=== PATIENT | male | born 1965 | race American Indian/Alaskan Native ===

== ENCOUNTER 2020-05-03 05:21 | Inpatient (IN) | payer OTHER ==
[2020-05-03] MEDS ORDERED: levETIRAcetam 1000 MG/NS 0.75% 1,000 MG/100 ML BAG IV ONE ×2 (06:35→09:00)
--- NOTE | 2020-05-03 06:41 | Emergency Department Report ---
ED Seizure HPI - General Chief Complaint: Seizure Stated Complaint: SEIZURE Time Seen by Provider: 05/03/20 06:11 Source: patient, EMS Mode of arrival: Stretcher Limitations: No Limitations - History of Present Illness Initial Comments: Chief complaint: Seizure HPI: This is a 54-year-old male with history of hypertension, alcohol dependence who presents with seizure. Patient was transported via EMS. Family member informed paramedics that patient has had 2 seizures within the last month. According to EMS seizure lasted approximately 1 minute. Patient admits to drinking beer daily. He drinks 3-4 large beers. Last beer was yesterday. He currently denies any symptoms. No previous history of seizure. He initiated care with new PCP Dr. Opal Salcedo. Dr. Salcedo prescribe quitting alcohol. Patient has not taken this medication in over a month. Home medications: Naltrexone Metoprolol Amlodipine Folic acid Complaint: seizure -: This morning Witnessed:: Yes Trauma: No Seizure History: none Place: home Possible Precipitating Event: alcohol withdrawal Associated Symptoms: denies other symptoms Treatments Prior to Arrival: other (EMS transport) - Related Data Allergies Allergy/AdvReac Type Severity Reaction Status Date / Time No Known Allergies Allergy Unverified 05/03/20 05:53 ED Review of Systems ROS: Stated complaint: SEIZURE Other details as noted in HPI Comment: All other systems reviewed and negative Constitutional: denies: fever, malaise Respiratory: denies: cough, shortness of breath Cardiovascular: denies: chest pain Gastrointestinal: denies: abdominal pain, nausea, vomiting Neurological: denies: headache, weakness ED Past Medical Hx - Past Medical History Previous Medical History?: Yes Hx Hypertension: Yes Hx Seizures: No Additional medical history: Alcohol dependence - Surgical History Past Surgical History?: No - Social History Smoking Status: Former Smoker Substance Use Type: Alcohol ED Physical Exam - General Limitations: No Limitations General appearance: alert, in no apparent distress - Head Head exam: Present: atraumatic, normocephalic - Eye Eye exam: Present: normal appearance - ENT ENT exam: Present: mucous membranes moist - Neck Neck exam: Present: normal inspection, full ROM - Respiratory Respiratory exam: Present: normal lung sounds bilaterally. Absent: respiratory distress, wheezes, rales, rhonchi - Cardiovascular Cardiovascular Exam: Present: regular rate, normal rhythm, normal heart sounds. Absent: systolic murmur, diastolic murmur, rubs, gallop - GI/Abdominal GI/Abdominal exam: Present: soft, normal bowel sounds. Absent: distended, tenderness, guarding, rebound - Rectal Rectal exam: Present: deferred - Extremities Exam Extremities exam: Present: normal inspection - Neurological Exam Neurological exam: Present: alert, oriented X3 - Expanded Neurological Exam Expanded Patient oriented to: Present: person, place, time Speech: Present: fluid speech Cranial nerves: EOM's Intact: Normal Cerebellar function: Finger to Nose: Normal Sensory exam: Upper Extremity Light Touch: Normal Motor strength exam: RUE: 5, LUE: 5, RLE: 5, LLE: 5 Best Eye Response (Peebles): (4) open spontaneously Best Motor Response (Javi): (6) obeys commands Best Verbal Response (Javi): (5) oriented Javi Total: 15 - Psychiatric Psychiatric exam: Present: normal affect, normal mood - Skin Skin exam: Present: warm, dry, intact, normal color. Absent: rash ED Course Vital Signs 05/03/20 05/03/20 05/03/20 05:32 05:33 05:46 Temperature 97.6 F Pulse Rate 96 H 111 H 96 H Respiratory 11 L 14 11 L Rate Blood Pressure 158/90 158/90 Blood Pressure 158/90 [Right] O2 Sat by Pulse 100 100 100 Oximetry 05/03/20 05/03/20 06:00 06:16 Temperature Pulse Rate 99 H 100 H Respiratory 13 13 Rate Blood Pressure 158/90 164/92 Blood Pressure [Right] O2 Sat by Pulse 98 100 Oximetry ED Medical Decision Making - Lab Data Result diagrams: 05/03/20 06:44 05/03/20 06:44 - Medical Decision Making Alcohol withdrawal seizure: Patient is admitted for further treatment and evaluation. Upon lab review patient has evidence of alcoholic ketoacidosis as well as SOWMYA. I suspect alcoholic liver disease with elevated T bilirubin AST. Critical care attestation.: If time is entered above; I have spent that time in minutes in the direct care of this critically ill patient, excluding procedure time. ED Disposition Clinical Impression: Alcohol withdrawal seizure, Alcoholic ketoacidosis, Alcoholic liver disease, Acute kidney injury Disposition: OP ADMIT IP TO THIS HOSP Is pt being admited?: Yes Does the pt Need Aspirin: No Condition: Fair
[2020-05-03] MEDS ORDERED: LORazepam 2 MG/ML VIAL IV PRN (06:45)
[2020-05-03 07:24] LABS: Basophils % (Auto) 0.6 % (0.0-1.8); Hematocrit 37.8 % (35.5-45.6); Lymphocytes # (Auto) 0.7 K/mm3 (1.2-5.4); Lymphocytes % (Auto) 11.5 % (13.4-35.0); Mean Corpuscular HGB Conc 34 % (32-34); Mean Corpuscular Volume 108 fl (84-94); Monocytes # (Auto) 0.4 K/mm3 (0.0-0.8); Monocytes % (Auto) 6.8 % (0.0-7.3); Platelet Count 250 K/mm3 (140-440); Red Blood Count 3.49 M/mm3 (3.65-5.03); Red Cell Distribution Width 13.4 % (13.2-15.2)
[2020-05-03 07:42] LABS: Albumin 4.7 g/dL (3.9-5); Calcium 10.1 mg/dL (8.4-10.2)
[2020-05-03] MEDS ORDERED: ONDANSETRON 4 MG/2 ML INJ IV ONE (07:48)
[2020-05-03] MEDS ORDERED: SODIUM CHLORIDE 0.9% 1000 ML 1,000 ML IV ONE (07:48)
--- NOTE | 2020-05-03 10:36 | History and Physical Report ---
History of Present Illness Date of examination: 05/03/20 Date of admission: 05/03/20 07:53 Chief complaint: Metabolic encephalopathy/AMS/seizures History of present illness: 54-year-old -[place] male patient with significant history of hypertension chronic alcohol use seizure disorder presented to the emergency room brought by EMS with altered level of consciousness and seizures x2 witnessed by family.Patient gives history of chronic alcohol use drinks about 3- 4 large beers, last drink was yesterday, patient's primary care physician is encouraging him to quit alcohol and prescribed some medications However he was noncompliant and did not take them Complains of mild dizziness and headache Patient denies nausea vomiting or abdominal pain Past History Past Medical History: hypertension, seizures, other (Chronic alcohol use) Past Surgical History: No surgical history Social history: alcohol abuse. denies: smoking, prescription drug abuse, IV drug use Family history: no significant family history Medications and Allergies Allergies Allergy/AdvReac Type Severity Reaction Status Date / Time No Known Allergies Allergy Unverified 05/03/20 05:53 Home Medications Medication Instructions Recorded Confirmed Last Taken Type Amlodipine Besylate [Norvasc] 10 mg PO QDAY 05/03/20 05/03/20 Unknown History Folic Acid 1 mg PO QDAY 05/03/20 05/03/20 Unknown History Metoprolol Xl [Metoprolol 100 mg PO QDAY 05/03/20 05/03/20 Unknown History SUCCINATE ER TAB] Naltrexone HCl 50 mg PO QDAY 05/03/20 05/03/20 Unknown History Active Meds: Active Medications Lorazepam (Lorazepam 2 Mg/Ml Vial) 2 mg IV Q1HR PRN PRN Reason: Kalani 10-03 Last Admin: 05/03/20 09:17 Dose: 2 mg Documented by: Lorazepam (Lorazepam 2 Mg Tab) 2 mg PO Q1HR PRN PRN Reason: Kalani 10-03 Review of Systems Constitutional: weakness, no weight loss, no weight gain, no fever, no chills Ears, nose, mouth and throat: no nasal congestion, no nasal discharge Cardiovascular: no chest pain, no orthopnea, no palpitations Respiratory: no cough, no shortness of breath Gastrointestinal: no abdominal pain, no nausea, no vomiting Genitourinary Male: no dysuria, no hematuria Musculoskeletal: no myalgias, no arthritis Integumentary: no rash, no lesions Neurological: seizures, change in mentation, confusion Psychiatric: no anxiety, no depression Endocrine: no cold intolerance, no heat intolerance Hematologic/Lymphatic: no easy bruising, no easy bleeding Allergic/Immunologic: no urticaria, no allergic rhinitis Exam - Constitutional Vitals: Temp Pulse Resp BP Pulse Ox 98.8 F 90 18 172/90 100 05/03/20 09:20 05/03/20 09:20 05/03/20 09:20 05/03/20 09:20 05/03/20 09:20 General appearance: Present: mild distress, well-nourished - EENT Eyes: Present: PERRL, EOM intact - Neck Neck: Present: supple, normal ROM - Respiratory Respiratory effort: normal Respiratory: bilateral: diminished, rhonchi, negative: rales, wheezing - Cardiovascular Rhythm: regular Heart Sounds: Present: S1 & S2 - Extremities Extremities: no ischemia, No edema - Abdominal General gastrointestinal: Present: soft, non-tender, non-distended, normal bowel sounds - Integumentary Integumentary: Present: clear, warm - Musculoskeletal Musculoskeletal: strength equal bilaterally, generalized weakness, other (Mild tremulousness) - Psychiatric Psychiatric: appropriate mood/affect, cooperative - Neurologic Neurologic: moves all extremities (Tremulousness) Results - Labs CBC & Chem 7: 05/03/20 06:44 05/03/20 06:44 Labs: Abnormal lab results 05/03/20 05/03/20 Range/Units 06:44 06:44 RBC 3.49 L (3.65-5.03) M/mm3 MCV 108 H (84-94) fl MCH 37 H (28-32) pg Lymph % (Auto) 11.5 L (13.4-35.0) % Lymph # (Auto) 0.7 L (1.2-5.4) K/mm3 Seg Neutrophils % 81.1 H (40.0-70.0) % Carbon Dioxide 17 L (22-30) mmol/L Creatinine 2.3 H (0.8-1.3) mg/dL Glucose 147 H (75-100) mg/dL Phosphorus 5.70 H (2.5-4.5) mg/dL Total Bilirubin 2.80 H (0.1-1.2) mg/dL AST 67 H (5-40) units/L Total Protein 8.3 H (6.3-8.2) g/dL Assessment and Plan --Acute metabolic encephalopathy; Secondary to alcohol use Alcohol withdrawal symptoms Treat the underlying cause Neurochecks CT head without contrast negative --Seizures; seizure precaution Keppra 500 mg p.o. twice daily Ativan as needed for seizure activity Neurology consulted EEG, MRI brain without contrast Do not drive for 6 months Or cleared by neurology/PMD Patient will follow outpatient neuro upon discharge --Alcohol withdrawal symptoms; Initiate CIWA protocol, IV fluids Thiamine folic acid Supportive care Fall precautions restraints as needed --Chronic alcohol use; Counseling strongly advised to quit Also advised to seek alcohol rehabilitation Help from [facility] support groups --Hypertension; moderate control Resume home antihypertensives As needed hydralazine --DVT prophylaxis; Lovenox We will closely monitor the patient and adjust the management as needed Plan of care reviewed with the patient and his nurse
[2020-05-03] MEDS ORDERED: ONDANSETRON 4 MG/2 ML INJ IV PRN (10:37)
[2020-05-03] MEDS ORDERED: SODIUM CHLORIDE 0.9% 100 ML IVPB IV SCH (13:00)
--- NOTE | 2020-05-03 14:06 | Cat Scan Report ---
CT HEAD WITHOUT CONTRAST INDICATION / CLINICAL INFORMATION: Altered level of consciousness/seizures. TECHNIQUE: Axial imaging performed from the skull apex through the skull base without the use of cont rast. Sagittal and coronal reformatted images. All CT scans at this location are performed using CT dose reduction for ALARA by means of automated exposure control. COMPARISON: None available. FINDINGS: CEREBRAL PARENCHYMA: No significant abnormality. No acute territorial infarct. HEMORRHAGE: None. EXTRA-AXIAL SPACES: Normal in size and morphology for the patient's age. VENTRICULAR SYSTEM: Normal in size and morphology for the patient's age. MIDLINE SHIFT OR HERNIATION: None. CEREBELLUM / BRAINSTEM: No significant abnormality. CALVARIUM: No significant abnormality. ORBITS: Normal as visualized. PARANASAL SINUSES / MASTOID AIR CELLS: Normal as visualized. SOFT TISSUES of HEAD: No significant abnormality. ADDITIONAL FINDINGS: None. IMPRESSION: No acute intracranial abnormality. Signer Name: Jefe Cade Jr, MD Signed: 05/03/2020 2:01 PM Workstation Name: [id number]
[2020-05-03] MEDS: METOPROLOL SUCCINATE XL 100 MG TAB PO SCH (16:37)
[2020-05-03] MEDS: LORazepam 2 MG TAB PO PRN ×2 (16:37→22:57)
[2020-05-03] MEDS: SODIUM CHLORIDE 0.9% 1000 ML 1,000 ML IV SCH (16:38)
[2020-05-03] MEDS: INSULIN LISPRO 100 UNIT/ML SUB-Q SCH ×2 (16:39→22:58)
--- NOTE | 2020-05-03 17:02 | Consultation ---
History of Present Illness Consult date: 05/03/20 Reason for Consult: Caryl History of present illness: HPI: This is a 54-year-old male with history of hypertension, alcohol dependence who presents with seizure. Patient was transported via EMS. Family member informed paramedics that patient has had 2 seizures within the last month. According to EMS seizure lasted approximately 1 minute. Patient admits to drinking beer daily. He drinks 3-4 large beers. Last beer was yesterday. He currently denies any symptoms. No previous history of seizure. He initiated care with new PCP Dr. Opal Salcedo. Dr. Salcedo prescribe quitting alcohol. Patient has not taken this medication in over a month. The patient reports no seizure in the hospital . There is no headache and no issues with dizziness and vertigo. Past History Past Medical History: hypertension, seizures, other (Chronic alcohol use) Past Surgical History: No surgical history Social history: alcohol abuse. denies: smoking, prescription drug abuse, IV drug use Family history: no significant family history Medications and Allergies Allergies Allergy/AdvReac Type Severity Reaction Status Date / Time No Known Allergies Allergy Unverified 05/03/20 05:53 Home Medications Medication Instructions Recorded Confirmed Last Taken Type Amlodipine Besylate [Norvasc] 10 mg PO QDAY 05/03/20 05/03/20 Unknown History Folic Acid 1 mg PO QDAY 05/03/20 05/03/20 Unknown History Metoprolol Xl [Metoprolol 100 mg PO QDAY 05/03/20 05/03/20 Unknown History SUCCINATE ER TAB] Naltrexone HCl 50 mg PO QDAY 05/03/20 05/03/20 Unknown History Active Meds: Active Medications Amlodipine Besylate (Amlodipine 5 Mg Tab) 10 mg PO QDAY BERNADINE Folic Acid (Folic Acid 1 Mg Tab) 1 mg PO QDAY BERNADINE Sodium Chloride (Nacl 0.9% 1000 Ml) 1,000 mls @ 75 mls/hr IV DIRECT BERNADINE Last Admin: 05/03/20 16:38 Dose: 75 mls/hr Documented by: Insulin Human Lispro (Insulin Lispro 100 Unit/Ml) 0 unit SUB-Q ACHS BERNADINE; Henri col Last Admin: 05/03/20 16:39 Dose: Not Given Documented by: Lorazepam (Lorazepam 2 Mg/Ml Vial) 2 mg IV Q1HR PRN PRN Reason: CIWA-Ar 8-15 Last Admin: 05/03/20 09:17 Dose: 2 mg Documented by: Lorazepam (Lorazepam 2 Mg Tab) 2 mg PO Q1HR PRN PRN Reason: CIWA-Ar 10-03 Last Admin: 05/03/20 16:37 Dose: 2 mg Documented by: Metoprolol Succinate (Metoprolol Succinate Xl 100 Mg Tab) 100 mg PO QDAY [facility] Last Admin: 05/03/20 16:37 Dose: 100 mg Documented by: Ondansetron HCl (Ondansetron 4 Mg/2 Ml Inj) 4 mg IV Q4H PRN PRN Reason: Nausea And Vomiting Thiamine HCl (Thiamine 100 Mg Tab) 100 mg PO QDAY [facility] Physical Examination - Vital Signs Vital Signs: Vital Signs Pulse Resp Pulse Ox 96 H 11 L 100 05/03/20 05:32 05/03/20 05:32 05/03/20 05:32 - Physical Exam Narrative exam: The patient is alert, moves all 4 extremities, Gait is not tested . Results - Laboratory Findings CBC and BMP: 05/03/20 06:44 05/03/20 06:44 Abnormal Lab Findings: Abnormal Labs 05/03/20 05/03/20 05/03/20 06:44 06:44 11:34 RBC 3.49 L MCV 108 H MCH 37 H Lymph % (Auto) 11.5 L Lymph # (Auto) 0.7 L Seg Neutrophils % 81.1 H Carbon Dioxide 17 L Creatinine 2.3 H Glucose 147 H POC Glucose 107 H Phosphorus 5.70 H Total Bilirubin 2.80 H AST 67 H Total Protein 8.3 H Assessment and Plan 1. Seizure ( clinically most likely - no clinical evidence of focal neurological defecit. 2. Discussed Management - ? ETO withdrawal versus Primary Seizure. Plan: 1. Needs MRI Brain no contrast . 2. EEG in Hospital if normal consider out patient Ambulatory EEG. 3. No driving for 6 months . 4. Continue Current Medications . 5. Needs a Neurology Out patient followup to adjsut medications. 6. Continue Keppra 500 mg BID for now . Call back with Questions Dr. Morales
[2020-05-03] MEDS ORDERED: INSULIN LISPRO 100 UNIT/ML SUB-Q SCH (22:00)
[2020-05-03] MEDS: levETIRAcetam 500 MG TAB PO SCH (22:57)
[2020-05-04 06:21] LABS: Calcium 8.6 mg/dL (8.4-10.2)
[2020-05-04] MEDS: levETIRAcetam 500 MG TAB PO SCH ×2 (10:00→21:51)
[2020-05-04] MEDS: INSULIN LISPRO 100 UNIT/ML SUB-Q SCH ×4 (10:14→21:51)
[2020-05-04] MEDS: THIAMINE 100 MG TAB PO SCH (10:49)
[2020-05-04] MEDS: METOPROLOL SUCCINATE XL 100 MG TAB PO SCH (10:50)
[2020-05-04] MEDS: amLODIPine 10 MG TAB PO SCH (10:50)
[2020-05-04] MEDS: FOLIC ACID 1 MG TAB PO SCH (10:50)
--- NOTE | 2020-05-04 11:30 | Progress Note ---
Assessment and Plan Assessment and plan: --Acute metabolic encephalopathy; Secondary to alcohol use Alcohol withdrawal symptoms Treat the underlying cause CT head without contrast negative MRI brain; no acute abnormality, age-related global atrophy EEG; pending --Seizures; seizure precaution Keppra 500 mg p.o. twice daily Ativan as needed for seizure activity Neurology following EEG; pending, MRI brain without contrast/negative Do not drive for 6 months/till cleared by neurology/PMD Patient will follow outpatient neuro upon discharge --Alcohol withdrawal symptoms; Initiate CIWA protocol, IV fluids Thiamine folic acid Supportive care Fall precautions restraints as needed --Chronic alcohol use; Counseling strongly advised to quit Also advised to seek alcohol rehabilitation Help from [facility] support groups --Hypertension; moderate control Resume home antihypertensives As needed hydralazine PT evaluation and management --DVT prophylaxis; Lovenox We will closely monitor the patient and adjust the management as needed Plan of care reviewed with the patient and his nurse Will discharge home in 1 to 2 days if stable History Interval history: I have seen and examined the patient at the bedside Patient's chart and medications reviewed No new episodes of seizures Patient feels better no new complaints Vital signs noted Hospitalist Physical - Constitutional Vitals: Temp Pulse Resp BP Pulse Ox 98.7 F 78 18 149/72 100 05/04/20 07:47 05/04/20 10:50 05/04/20 07:47 05/04/20 10:50 05/04/20 07:47 General appearance: Present: mild distress, well-nourished, other (Mild tremu lousness) - EENT Eyes: Present: PERRL, EOM intact - Neck Neck: Present: supple, normal ROM - Respiratory Respiratory effort: normal Respiratory: bilateral: diminished, negative: rales, rhonchi, wheezing - Cardiovascular Rhythm: regular Heart Sounds: Present: S1 & S2 - Extremities Extremities: no ischemia, No edema - Abdominal General gastrointestinal: soft, non-tender, non-distended, normal bowel sounds - Integumentary Integumentary: Present: clear, warm - Psychiatric Psychiatric: appropriate mood/affect, cooperative - Neurologic Neurologic: moves all extremities Results - Labs CBC & Chem 7: 05/03/20 06:44 05/04/20 05:27 Labs: Laboratory Last Values WBC 5.9 K/mm3 (4.5-11.0) 05/03/20 06:44 RBC 3.49 M/mm3 (3.65-5.03) L 05/03/20 06:44 Hgb 13.0 gm/dl (11.8-15.2) 05/03/20 06:44 Hct 37.8 % (35.5-45.6) 05/03/20 06:44 MCV 108 fl (84-94) H 05/03/20 06:44 MCH 37 pg (28-32) H 05/03/20 06:44 MCHC 34 % (32-34) 05/03/20 06:44 RDW 13.4 % (13.2-15.2) 05/03/20 06:44 Plt Count 250 K/mm3 (140-440) 05/03/20 06:44 Lymph % (Auto) 11.5 % (13.4-35.0) L 05/03/20 06:44 [place] % (Auto) 6.8 % (0.0-7.3) 05/03/20 06:44 Eos % (Auto) 0.0 % (0.0-4.3) 05/03/20 06:44 Baso % (Auto) 0.6 % (0.0-1.8) 05/03/20 06:44 Lymph # (Auto) 0.7 K/mm3 (1.2-5.4) L 05/03/20 06:44 [place] # (Auto) 0.4 K/mm3 (0.0-0.8) 05/03/20 06:44 Eos # (Auto) 0.0 K/mm3 (0.0-0.4) 05/03/20 06:44 Baso # (Auto) 0.0 K/mm3 (0.0-0.1) 05/03/20 06:44 Seg Neutrophils % 81.1 % (40.0-70.0) H 05/03/20 06:44 Seg Neutrophils # 4.8 K/mm3 (1.8-7.7) 05/03/20 06:44 Sodium 139 mmol/L (137-145) 05/04/20 05:27 Potassium 4.2 mmol/L (3.6-5.0) 05/04/20 05:27 Chloride 101.4 mmol/L (98-107) 05/04/20 05:27 Carbon Dioxide 24 mmol/L (22-30) D 05/04/20 05:27 Anion Gap 18 mmol/L 05/04/20 05:27 BUN 21 mg/dL (9-20) H 05/04/20 05:27 Creatinine 1.7 mg/dL (0.8-1.3) H 05/04/20 05:27 Estimated GFR 51 ml/min 05/04/20 05:27 BUN/Creatinine Ratio 12 % 05/04/20 05:27 Glucose 74 mg/dL (75-100) L 05/04/20 05:27 POC Glucose 200 mg/dL (70-105) H 05/03/20 21:08 Calcium 8.6 mg/dL (8.4-10.2) 05/04/20 05:27 Phosphorus 5.70 mg/dL (2.5-4.5) H 05/03/20 06:44 Magnesium 2.00 mg/dL (1.7-2.3) 05/04/20 05:27 Total Bilirubin 2.80 mg/dL (0.1-1.2) H 05/03/20 06:44 AST 67 units/L (5-40) H 05/03/20 06:44 ALT 53 units/L (7-56) 05/03/20 06:44 Alkaline Phosphatase 41 units/L (35-129) 05/03/20 06:44 Total Protein 8.3 g/dL (6.3-8.2) H 05/03/20 06:44 Albumin 4.7 g/dL (3.9-5) 05/03/20 06:44 Albumin/Globulin Ratio 1.3 % 05/03/20 06:44 Active Medications - Current Medications Current Medications: Generic Name Dose Route Start Last Admin Trade Name Freq PRN Reason Stop Dose Admin Amlodipine Besylate 10 mg 05/04/20 10:00 05/04/20 10:50 Amlodipine 10 Mg Tab PO 10 mg QDAY BERNADINE Administration Folic Acid 1 mg 05/04/20 10:00 05/04/20 10:50 Folic Acid 1 Mg Tab PO 1 mg QDAY BERNADINE Administration Sodium Chloride 1,000 mls @ 75 mls/hr 05/03/20 12:45 05/03/20 16:38 Nacl 0.9% 1000 Ml IV 75 mls/hr DIRECT BERNADINE Administration Insulin Human Lispro 0 unit 05/03/20 16:30 05/04/20 10:14 Insulin Lispro 100 Unit/Ml SUB-Q Not Given ACHS BERNADINE Protocol Levetiracetam 500 mg 05/03/20 22:00 05/03/20 22:57 Levetiracetam 500 Mg Tab PO 500 mg BID BERNADINE Administration Lorazepam 2 mg 05/03/20 06:45 05/03/20 09:17 Lorazepam 2 Mg/Ml Vial IV 2 mg Q1HR PRN Administration [facility] 8-15 Lorazepam 2 mg 05/03/20 06:45 05/03/20 22:57 Lorazepam 2 Mg Tab PO 2 mg Q1HR PRN Administration [facility] 8-15 Metoprolol Succinate 100 mg 05/03/20 11:00 05/04/20 10:50 Metoprolol Succinate Xl 100 Mg Tab PO 100 mg QDAY BERNADINE Administration Ondansetron HCl 4 mg 05/03/20 10:37 Ondansetron 4 Mg/2 Ml Inj IV Q4H PRN Nausea And Vomiting Thiamine HCl 100 mg 05/04/20 10:00 05/04/20 10:49 Thiamine 100 Mg Tab PO 100 mg QDAY BERNADINE Administration
--- NOTE | 2020-05-04 11:54 | Magnetic Resonance Report ---
MRI BRAIN WITHOUT CONTRAST INDICATION / CLINICAL INFORMATION: Seizures. TECHNIQUE: Multiplanar, multisequence MR images of the brain were obtained. COMPARISON: Head CT on 05/03/2020 FINDINGS: BRAIN / INTRACRANIAL CONTENTS: No acute ischemia, acute hemorrhage, mass effect, midline shift, or hy drocephalus. No chronic infarct. Mild global brain atrophy slightly greater than expected for the pa tient's age. CRANIOCERVICAL JUNCTION: No significant abnormality. VASCULAR FLOW-VOIDS: No significant abnormality. ORBITS: No significant abnormality of visualized orbits. SINUSES / MASTOIDS: No significant abnormality of visualized sinuses and mastoid air cells. ADDITIONAL FINDINGS: None. IMPRESSION: 1. No acute findings. 2. Mild global brain atrophy which is greater than anticipated given the patient's age. Signer Name: Esdras Basilio MD Signed: 05/04/2020 11:49 AM Workstation Name: [id number]
[2020-05-04] MEDS: SODIUM CHLORIDE 0.9% 1000 ML 1,000 ML IV SCH (11:57)
--- NOTE | 2020-05-04 17:29 | Progress Note ---
Subjective Date of service: 05/04/20 Principal diagnosis: Seizures Interval history: 1. Reviewed MRI Brain - no acute issues and no mass .Awaits EEG . 2. Continue Keppra 750 mg BID 3. Driving Issues Discussed . 4. If stable patient can be followed up Out Patient Neurology Follow up . Dr. Carmen WRAY Objective - Vital Sign Vital Signs - 12hr 05/04/20 05/04/20 05/04/20 07:47 10:00 10:50 Temperature 98.7 F Pulse Rate 64 62 78 Respiratory 18 Rate Blood Pressure 170/98 149/72 O2 Sat by Pulse 100 Oximetry - Laboratory Findings CBC and BMP: 05/03/20 06:44 05/04/20 05:27 Abnormal Lab Findings: Abnormal Labs 05/03/20 05/03/20 05/03/20 06:44 06:44 11:34 RBC 3.49 L MCV 108 H MCH 37 H Lymph % (Auto) 11.5 L Lymph # (Auto) 0.7 L Seg Neutrophils % 81.1 H Carbon Dioxide 17 L BUN Creatinine 2.3 H Glucose 147 H POC Glucose 107 H Phosphorus 5.70 H Total Bilirubin 2.80 H AST 67 H Total Protein 8.3 H 05/03/20 05/03/20 05/04/20 16:39 21:08 05:27 RBC MCV MCH Lymph % (Auto) Lymph # (Auto) Seg Neutrophils % Carbon Dioxide BUN 21 H Creatinine 1.7 H Glucose 74 L POC Glucose 128 H 200 H Phosphorus Total Bilirubin AST Total Protein 05/04/20 05/04/20 12:00 16:37 RBC MCV MCH Lymph % (Auto) Lymph # (Auto) Seg Neutrophils % Carbon Dioxide BUN Creatinine Glucose POC Glucose 150 H 117 H Phosphorus Total Bilirubin AST Total Protein
[2020-05-05 08:40] VITALS: BP 123/79
[2020-05-05] MEDS: INSULIN LISPRO 100 UNIT/ML SUB-Q SCH ×2 (10:15→12:21)
[2020-05-05] MEDS: amLODIPine 10 MG TAB PO SCH (10:17)
[2020-05-05] MEDS: FOLIC ACID 1 MG TAB PO SCH (10:17)
[2020-05-05] MEDS: THIAMINE 100 MG TAB PO SCH (10:17)
[2020-05-05] MEDS: levETIRAcetam 500 MG TAB PO SCH (10:17)
[2020-05-05] MEDS: METOPROLOL SUCCINATE XL 100 MG TAB PO SCH (10:20)
--- NOTE | 2020-05-05 12:23 | Discharge Summary ---
Providers - Providers Date of Admission: 05/04/20 17:48 Date of discharge: 05/05/20 Attending physician: KIM REYNOSO 05/03/20 17:17 Consult to Physician [CONS] Routine Comment: Consulting Provider: JALEEL SALAZAR Physician Instructions: Reason For Exam: Seizures 05/04/20 17:45 Physical Therapy Evaluation and Treat [CONS] Routine Comment: Reason For Exam: Seizures/unsteady gait Primary care physician: TERMINATION CLERK Hospitalization Condition: Fair Disposition: DC-01 TO HOME OR SELFCARE Time spent for discharge: 35 min Core Measure Documentation - Palliative Care Palliative Care/ Comfort Measures: Not Applicable - Core Measures Any of the following diagnoses?: none Exam - Constitutional Vitals: Temp Pulse Resp BP Pulse Ox 98.3 F 83 20 123/79 96 05/05/20 08:18 05/05/20 10:00 05/05/20 08:18 05/05/20 08:18 05/05/20 08:18 Plan Activity: advance as tolerated, no driving until cleared by PCP, fall precautions Diet: regular Additional Instructions: Advised to quit alcohol intake. Advised to seek alcohol rehabilitation. And help from [facility] support group. If you have worsening symptoms contact MD or go to emergency room. Advised to follow private neurologist in 1 week/outpatient EEG. Alcohol withdrawal seizure precautions. Do not drive for 6 months/until cleared by PMD or neurologist Follow up with: EMILEE BARBER MD [Primary Care Provider] - 7 Days JALEEL SALAZAR MD [Staff Physician] - 7 Days Prescriptions: Folic Acid 1 mg PO QDAY #30 levETIRAcetam [Keppra TAB] 750 mg PO BID #60 tablet Metoprolol Xl [Metoprolol SUCCINATE ER TAB] 100 mg PO QDAY #30 Thiamine [Vitamin B-1] 100 mg PO QDAY #30 tablet
== END 2020-05-05 15:23 | disposition home or self-care (01) | DRG 100 ==
LOC: ED 05:21 → 4A 07:53 → OBSVTOIN 05-04 17:48
PROVIDERS: ADMIT Internal Medicine; ATTEND Internal Medicine
DX: G40.89 Other seizures (principal); G93.41 Metabolic encephalopathy; N17.9 Acute kidney failure, unspecified; F10.239 Alcohol dependence with withdrawal, unspecified; E87.2 Acidosis; K70.9 Alcoholic liver disease, unspecified; I10 Essential (primary) hypertension; Z79.899 Other long term (current) drug therapy; Z87.891 Personal history of nicotine dependence
CPT/HCPCS: 36415; 70450; 70551; 80048; 80053; 82962; 83735; 84100; 85025; 95819; 96361; 96374; 96375; G0378; J1815; J1953; J2060; J2405; J7030

== ENCOUNTER 2021-02-04 05:56 | Observation (INO) | payer SELFPAY ==
[2021-02-04] MEDS ORDERED: levETIRAcetam 1000 MG/NS 0.75% 1,000 MG/100 ML BAG IV ONE (06:15)
[2021-02-04] MEDS ORDERED: THIAMINE 100 MG, FOLIC ACID 1 MG, MULTIPLE VITAMIN INJ, ADULT 10 ML in SODIUM CHLORIDE ... IV ONE ×2 (06:16→09:00)
--- NOTE | 2021-02-04 06:20 | Emergency Department Report ---
HPI - General Chief Complaint: Seizure Time Seen by Provider: 02/04/21 06:10 - HPI HPI: 55-year-old -Citizen Of [place] male presents to the emergency department via EMS from home after he had 2 witnessed seizures. First the patient had a witnessed seizure by his and patient was seen falling off of the bed onto the ground. Just as EMS arrived to the emergency department, while still in the ambulance, the patient had another seizure and was given 5 mg of Versed. At the time of my examination he presents postictal. He has a small forehead hematoma and some swelling to the nasal bridge. Patient appears to have a history of alcohol withdrawal seizures and EMS says that they believe that is what this is as well. No family at bedside and I have not yet had an opportunity to talk to the patient's family about the patient's drinking history. He is currently postictal and therefore a poor historian. ED Past Medical Hx - Past Medical History Hx Hypertension: Yes Hx Congestive Heart Failure: No Hx Diabetes: Yes Hx Seizures: No Hx Asthma: Yes Additional medical history: Alcohol dependence - Surgical History Past Surgical History?: No - Social History Smoking Status: Unknown if ever smoked Substance Use Type: None - Medications Home Medications: Home Medications Medication Instructions Recorded Confirmed Last Taken Type Amlodipine Besylate [Norvasc] 10 mg PO QDAY 05/03/20 05/03/20 Unknown History Naltrexone HCl 50 mg PO QDAY 05/03/20 05/03/20 Unknown History Folic Acid 1 mg PO QDAY #30 05/05/20 Unknown Rx Metoprolol Xl [Metoprolol 100 mg PO QDAY #30 05/05/20 Unknown Rx SUCCINATE ER TAB] Thiamine [Vitamin B-1] 100 mg PO QDAY #30 tablet 05/05/20 Unknown Rx levETIRAcetam [Keppra TAB] 750 mg PO BID #60 tablet 05/05/20 Unknown Rx ED Review of Systems ROS: Stated complaint: seizure Other details as noted in HPI Comment: Unobtainable due to pts medical conditions Physical Exam - Physical Exam Vital Signs: Vital Signs 02/04/21 05:59 Temperature 98.4 F Pulse Rate 110 H Respiratory 20 Rate Blood Pressure 160/104 [Left] O2 Sat by Pulse 98 Oximetry Physical Exam: GENERAL: The patient is ill-appearing and unresponsive. HENT: Normocephalic. Nonexpanding middle forehead hematoma with abrasion or very small laceration. Patient has moist mucous membranes. Swelling to the nasal bridge. EYES: Pupils equal reactive to light bilaterally. NECK: Supple. Trachea is midline. CHEST/LUNGS: Clear to auscultation. There is no respiratory distress noted. HEART/CARDIOVASCULAR: Regular. There is no tachycardia. There is no murmur. ABDOMEN: Abdomen is soft, nontender. Patient has normal bowel sounds. There is no abdominal distention. SKIN: Skin is warm and dry. NEURO: Patient is currently postictal and unresponsive. MUSCULOSKELETAL: There is no tenderness or deformity. ED Course Vital Signs 02/04/21 05:59 Temperature 98.4 F Pulse Rate 110 H Respiratory 20 Rate Blood Pressure 160/104 [Left] O2 Sat by Pulse 98 Oximetry ED Medical Decision Making - Lab Data Result diagrams: 02/04/21 07:10 02/04/21 07:10 - Radiology Data Radiology results: report reviewed, image reviewed interpreted by me: Chest x-ray does not show any acute process. There are no pleural effusions, obvious pneumonia and there is no pneumothorax. No widened mediastinum. CT HEAD WITHOUT CONTRAST INDICATION : Trauma. TECHNIQUE: Axial imaging performed from the skull apex through the skull base without the use of contrast. Sagittal and coronal reformatted images. All CT scans at this location are performed using CT dose reduction for Bloomz by means of automated exposure control. COMPARISON: 05/03/2020. FINDINGS: Parenchyma: No acute intracranial hemorrhage or parenchymal abnormality. No chronic infarct or extra-axial fluid collection. Ventricles: Ventricles are normal in size and appear symmetric. Bones: No acute osseous abnormality. Sinuses: Sinuses and mastoid air cells are clear. Soft tissues: Mild frontal soft tissue swelling is evident. IMPRESSION: No acute intracranial abnormality. Mild frontal soft tissue swelling. CT CERVICAL SPINE WITHOUT CONTRAST INDICATION: Trauma. TECHNIQUE: Axial imaging performed through the cervical spine without the use of contrast. Sag ittal and coronal reconstructed images were also reviewed. All CT scans at this location are performed using CT dose reduction for ALARA by means of automated exposure control. COMPARISON: None FINDINGS: Alignment: Spinal alignment is normal. Bones: There is no acute osseous abnormality. Moderate to severe discogenic DJD is identified at C4-5, C5-6 and C6-7. C6-C7 appears to be the most affected level. Soft tissues: No acute or significant incidental soft tissue abnormality. IMPRESSION: No acute injury to the cervical spine is appreciated. Moderate cervical spondylosis as described. CT FACIAL BONES WITHOUT CONTRAST INDICATION : Trauma. TECHNIQUE: Axial imaging performed through the face with reconstructed images also reviewed. Sagittal and coronal reformatted images. All CT scans at this location are performed using CT dose reduction for ALARA by means of automated exposure control. COMPARISON: None FINDINGS: There is mild frontal soft tissue swelling with associated focal laceration. No foreign body is appreciated. The facial bones are intact. Sinuses normal cavities are unremarkable. The skull base is intact. Poor dentition is noted. IMPRESSION: Frontal soft tissue swelling. No acute facial bone injury is appreciated. - Medical Decision Making This patient presents to the emergency department after having 2 witnessed seizures prior to presentation. He has a forehead hematoma and a skin avulsion to the nasal bridge. Patient presented postictal and mostly unresponsive. He was given a loading dose of Keppra. CT scan of the head does not show any hemorrhage, skull fracture, large vessel occlusion, or any other acute process. CT of the facial bones does not show any fracture, dislocation, or any acute process. CT of the cervical spine without contrast does not show any fracture, subluxation, or any acute process. Labs shows hyperglycemia with blood sugar of about 300. Patient does have an elevated anion gap but this is more likely secondary to alcoholic ketoacidosis than diabetic ketoacidosis. He has been given some IV fluid resuscitation. Patient has some chronic kidney disease. Urinalysis shows a urinary tract in fection. The patient has been given a dose of Rocephin. Patient has progressively gotten more awake and alert, but still displays some confusion. He is AAO x2 to person and place but not time. Patient will be admitted to the hospital for further evaluation and treatment was accepted for admission by the hospitalist, Dr. Peña. Critical Care Time: No Critical care attestation.: If time is entered above; I have spent that time in minutes in the direct care of this critically ill patient, excluding procedure time. ED Disposition Clinical Impression: Recurrent seizures Altered mental status Qualifiers: Altered mental status type: unspecified Qualified Code(s): R41.82 - Altered mental status, unspecified Hypertension Qualifiers: Hypertension type: primary hypertension Qualified Code(s): I10 - Essential (primary) hypertension Alcohol withdrawal seizure Qualifiers: Complication of substance-induced condition: with unspecified complication Qualified Code(s): F10.239 - Alcohol dependence with withdrawal, unspecified; R56.9 - Unspecified convulsions Disposition: 09 ADMITTED INPATIENT Is pt being admited?: Yes Condition: Fair Time of Disposition: 12:11
--- NOTE | 2021-02-04 06:56 | XRay Report ---
XR chest 1V ap INDICATION / CLINICAL INFORMATION: Trauma. COMPARISON: None available. FINDINGS: Shallow inspiration with streaky bibasilar pulmonary opacities likely reflect volume loss. There is no focal airspace consolidation. No sizable pleural effusion. No pneumothorax. IMPRESSION: Low lung volumes without acute findings. Signer Name: Beto Morillo MD Signed: 02/04/2021 6:52 AM Workstation Name: [id number]
--- NOTE | 2021-02-04 07:55 | Cat Scan Report ---
CT HEAD WITHOUT CONTRAST INDICATION : Trauma. TECHNIQUE: Axial imaging performed from the skull apex through the skull base without the use of con trast. Sagittal and coronal reformatted images. All CT scans at this location are performed using C T dose reduction for ALARA by means of automated exposure control. COMPARISON: 05/03/2020. FINDINGS: Parenchyma: No acute intracranial hemorrhage or parenchymal abnormality. No chronic infarct or extra -axial fluid collection. Ventricles: Ventricles are normal in size and appear symmetric. Bones: No acute osseous abnormality. Sinuses: Sinuses and mastoid air cells are clear. Soft tissues: Mild frontal soft tissue swelling is evident. IMPRESSION: No acute intracranial abnormality. Mild frontal soft tissue swelling. CT FACIAL BONES WITHOUT CONTRAST INDICATION : Trauma. TECHNIQUE: Axial imaging performed through the face with reconstructed images also reviewed. Sagitta l and coronal reformatted images. All CT scans at this location are performed using CT dose reduction for ALARA by means of automated exposure control. COMPARISON: None FINDINGS: There is mild frontal soft tissue swelling with associated focal laceration. No foreign [place] dy is appreciated. The facial bones are intact. Sinuses normal cavities are unremarkable. The skull b ase is intact. Poor dentition is noted. IMPRESSION: Frontal soft tissue swelling. No acute facial bone injury is appreciated. CT CERVICAL SPINE WITHOUT CONTRAST INDICATION: Trauma. TECHNIQUE: Axial imaging performed through the cervical spine without the use of contrast. Sagittal and coronal reconstructed images were also reviewed. All CT scans at this location are performed us ing CT dose reduction for ALARA by means of automated exposure control. COMPARISON: None FINDINGS: Alignment: Spinal alignment is normal. Bones: There is no acute osseous abnormality. Moderate to severe discogenic DJD is identified at C4 -5, C5-6 and C6-7. C6-C7 appears to be the most affected level. Soft tissues: No acute or significant incidental soft tissue abnormality. IMPRESSION: No acute injury to the cervical spine is appreciated. Moderate cervical spondylosis as d escribed. Signer Name: Jefe Cade Jr, MD Signed: 02/04/2021 7:50 AM Workstation Name: [id number]
[2021-02-04 08:23] LABS: Basophils % (Auto) 0.5 % (0.0-1.8); Eosinophils % (Auto) 0.4 % (0.0-4.3); Hematocrit 43.4 % (35.5-45.6); Lymphocytes # (Auto) 1.6 K/mm3 (1.2-5.4); Lymphocytes % (Auto) 14.5 % (13.4-35.0); Mean Corpuscular HGB Conc 32 % (32-34); Mean Corpuscular Volume 102 fl (84-94); Monocytes # (Auto) 0.3 K/mm3 (0.0-0.8); Monocytes % (Auto) 2.5 % (0.0-7.3); Platelet Count 513 K/mm3 (140-440); Red Blood Count 4.24 M/mm3 (3.65-5.03); Red Cell Distribution Width 13.9 % (13.2-15.2)
[2021-02-04 08:24] LABS: Basophils # (Auto) 0.1 K/mm3 (0.0-0.1)
[2021-02-04 09:12] LABS: Albumin 4.4 g/dL (3.9-5); Calcium 9.6 mg/dL (8.4-10.2)
[2021-02-04] MEDS ORDERED: LORazepam 2 MG/ML VIAL IV PRN ×2 (12:12)
--- NOTE | 2021-02-04 14:30 | History and Physical Report ---
History of Present Illness Date of examination: 02/04/21 Date of admission: 02/04/21 12:11 History of present illness: 55-year-old -[place] male presents to the emergency department via EMS from home after he had 2 witnessed seizures. First the patient had a witnessed seizure by his and patient was seen falling off of the bed onto the ground. Just as EMS arrived to the emergency department, while still in the ambulance, the patient had another seizure and was given 5 mg of Versed. At the time of my examination he presents postictal. He has a small forehead hematoma and some swelling to the nasal bridge. Patient appears to have a history of alcohol withdrawal seizures and EMS says that they believe that is what this is as well. No family at bedside and I have not yet had an opportunity to talk to the patient's family about the patient's drinking history. He is currently postictal and therefore a poor historian. - Past Medical History Hx Hypertension: Yes Hx Diabetes: Yes Hx Asthma: Yes Additional medical history: Alcohol dependence - Surgical History Past Surgical History?: No - Social History Smoking Status: Unknown if ever smoked Substance Use Type: None - Medications Home Medications: Home Medications Medication Instructions Recorded Confirmed Last Taken Type Amlodipine Besylate [Norvasc] 10 mg PO QDAY 05/03/20 05/03/20 Unknown History Naltrexone HCl 50 mg PO QDAY 05/03/20 05/03/20 Unknown History Folic Acid 1 mg PO QDAY #30 05/05/20 Unknown Rx Metoprolol Xl [Metoprolol 100 mg PO QDAY #30 05/05/20 Unknown Rx SUCCINATE ER TAB] Thiamine [Vitamin B-1] 100 mg PO QDAY #30 tablet 05/05/20 Unknown Rx levETIRAcetam [Keppra TAB] 750 mg PO BID #60 tablet 05/05/20 Unknown Rx Review of Systems ROS: Stated complaint: seizure Other details as noted in HPI Comment: Unobtainable due to pts medical conditions Medications and Allergies Allergies Allergy/AdvReac Type Severity Reaction Status Date / Time No Known Allergies Allergy Verified 02/04/21 06:00 Home Medications Medication Instructions Recorded Confirmed Last Taken Type Amlodipine Besylate [Norvasc] 10 mg PO QDAY 05/03/20 05/03/20 Unknown History Naltrexone HCl 50 mg PO QDAY 05/03/20 05/03/20 Unknown History Folic Acid 1 mg PO QDAY #30 05/05/20 Unknown Rx Metoprolol Xl [Metoprolol 100 mg PO QDAY #30 05/05/20 Unknown Rx SUCCINATE ER TAB] Thiamine [Vitamin B-1] 100 mg PO QDAY #30 tablet 05/05/20 Unknown Rx levETIRAcetam [Keppra TAB] 750 mg PO BID #60 tablet 05/05/20 Unknown Rx Active Meds: Active Medications Lorazepam (Lorazepam 2 Mg/Ml Vial) 2 mg IV Q1HR PRN PRN Reason: CIWA-Ar 8-15 Lorazepam (Lorazepam 2 Mg/Ml Vial) 4 mg IV Q1HR PRN PRN Reason: CIWA-Ar 16-25 Exam - Constitutional Vitals: Temp Pulse Resp BP Pulse Ox 98.4 F 88 18 177/110 100 02/04/21 05:59 02/04/21 12:15 02/04/21 12:15 02/04/21 12:15 02/04/21 12:15 Results - Labs CBC & Chem 7: 02/04/21 07:10 02/04/21 07:10 Labs: Laboratory Last Values WBC 11.0 K/mm3 (4.5-11.0) 02/04/21 07:10 RBC 4.24 M/mm3 (3.65-5.03) 02/04/21 07:10 Hgb 14.0 gm/dl (11.8-15.2) 02/04/21 07:10 Hct 43.4 % (35.5-45.6) 02/04/21 07:10 MCV 102 fl (84-94) H 02/04/21 07:10 MCH 33 pg (28-32) H 02/04/21 07:10 MCHC 32 % (32-34) 02/04/21 07:10 RDW 13.9 % (13.2-15.2) 02/04/21 07:10 Plt Count 513 K/mm3 (140-440) H 02/04/21 07:10 Lymph % (Auto) 14.5 % (13.4-35.0) 02/04/21 07:10 [place] % (Auto) 2.5 % (0.0-7.3) 02/04/21 07:10 Eos % (Auto) 0.4 % (0.0-4.3) 02/04/21 07:10 Baso % (Auto) 0.5 % (0.0-1.8) 02/04/21 07:10 Lymph # (Auto) 1.6 K/mm3 (1.2-5.4) 02/04/21 07:10 [place] # (Auto) 0.3 K/mm3 (0.0-0.8) 02/04/21 07:10 Eos # (Auto) 0.0 K/mm3 (0.0-0.4) 02/04/21 07:10 Baso # (Auto) 0.1 K/mm3 (0.0-0.1) 02/04/21 07:10 Seg Neutrophils % 82.1 % (40.0-70.0) H 02/04/21 07:10 Seg Neutrophils # 9.1 K/mm3 (1.8-7.7) H 02/04/21 07:10 Sodium 139 mmol/L (137-145) 02/04/21 07:10 Potassium 4.6 mmol/L (3.6-5.0) 02/04/21 07:10 Chloride 98.0 mmol/L (98-107) 02/04/21 07:10 Carbon Dioxide 10 mmol/L (22-30) L 02/04/21 07:10 Anion Gap 36 mmol/L 02/04/21 07:10 BUN 20 mg/dL (9-20) 02/04/21 07:10 Creatinine 2.1 mg/dL (0.8-1.3) H 02/04/21 07:10 Estimated GFR 40 ml/min 02/04/21 07:10 BUN/Creatinine Ratio 10 % 02/04/21 07:10 Glucose 299 mg/dL (75-100) H 02/04/21 07:10 Calcium 9.6 mg/dL (8.4-10.2) 02/04/21 07:10 Total Bilirubin 0.90 mg/dL (0.1-1.2) 02/04/21 07:10 AST 26 units/L (5-40) 02/04/21 07:10 ALT 13 units/L (7-56) 02/04/21 07:10 Alkaline Phosphatase 54 units/L (35-129) 02/04/21 07:10 Total Creatine Kinase 174 units/L (55-170) H 02/04/21 07:10 Total Protein 8.7 g/dL (6.3-8.2) H 02/04/21 07:10 Albumin 4.4 g/dL (3.9-5) 02/04/21 07:10 Albumin/Globulin Ratio 1.0 % 02/04/21 07:10 Plasma/Serum Alcohol < 0.01 % (0-0.07) 02/04/21 07:10
[2021-02-04 14:47] LABS: Bilirubin,Urine NEG (Negative); Blood,Urine MOD (Negative); Color,Urine Yellow (Yellow); Mucus,Urine FEW /HPF; Urobilinogen,Urine < 2.0 mg/dL (<2.0)
[2021-02-04 14:51] LABS: Amphetamine Screen,Urine Negative; Cannabinoid Screen,Urine Negative; Cocaine Screen,Urine Negative; Methadone Screen,Urine Negative; Opiate Screen,Urine Negative
[2021-02-04] MEDS ORDERED: cefTRIAXone/NS 1 GM/50 ML 1 GM/50 ML BAG IV ONE (14:52)
[2021-02-04 15:04] LABS: Benzodiazepines Screen,Urine Positive
[2021-02-04 15:09] VITALS: BP 160/90
--- NOTE | 2021-02-05 12:48 | Electrocardiograph Report ---
[facility] Test Date: 2021-02-04 Test Time: 09:56:33 Pat Name: WENDY AVILA Department: Room: [place] [address] Gender: M [employer] Systems Analyst: MARIO : 1965 Requested By: EDUARDO VU Order Number: [id number] Reading MD: Adrian Mix Measurements Intervals [place] Rate: 96 P: 60 NE: 157 QRS: 2 QRSD: 90 T: 41 QT: 368 QTc: 466 Interpretive Statements Sinus rhythm No previous ECG available for comparison Electronically Signed On 02-05-2021 12:47:25 EST by Adrian Mix
== END 2021-02-04 15:09 | disposition left against medical advice (07) ==
LOC: ED 05:56 → 4A 12:11
PROVIDERS: ADMIT Internal Medicine; ATTEND Internal Medicine
DX: R56.9 Unspecified convulsions (principal); I10 Essential (primary) hypertension; E11.9 Type 2 diabetes mellitus without complications; J45.909 Unspecified asthma, uncomplicated; F10.239 Alcohol dependence with withdrawal, unspecified; R41.82 Altered mental status, unspecified; Z79.899 Other long term (current) drug therapy; Z98.890 Other specified postprocedural states
CPT/HCPCS: 36415; 70450; 70486; 71045; 72125; 80053; 80307; 81001; 82550; 85025; 87076; 87086; 87186; 93005; 96365; 96366; 96367; 99285; G0378; J1953; J3411; J3490; J7030; 80320; Q0162; G0480

== ENCOUNTER 2021-03-02 09:12 | Inpatient (IN) | payer SELFPAY ==
[2021-03-02] MEDS ORDERED: SODIUM CHLORIDE 0.9% 1000 ML 1,000 ML IV ONE (09:18)
[2021-03-02] MEDS ORDERED: levETIRAcetam 1000 MG/NS 0.75% 1,000 MG/100 ML BAG IV ONE (09:19)
--- NOTE | 2021-03-02 09:19 | Emergency Department Report ---
ED Seizure HPI - General Stated Complaint: SEIZURE Time Seen by Provider: 03/02/21 09:18 - History of Present Illness Initial Comments: Patient was brought in by EMS because of seizures. He has had 2 seizures. They have administered Ativan 2 mg x 2 without symptomatic change. He never woke up between seizures. He started seizing upon arrival. The IV had blown up. He then stopped promptly. EMS reports that they were called for seizure and altered mental status. Apparently he has a history of hypertension and seizures. According to EMS, he is noncompliant with medication. History is only obtainable from EMS as the patient is altered. There was no reported history of trauma. - Related Data Home Medications Medication Instructions Recorded Confirmed Last Taken Amlodipine Besylate [Norvasc] 10 mg PO QDAY 05/03/20 05/03/20 Unknown Naltrexone HCl 50 mg PO QDAY 05/03/20 05/03/20 Unknown Previous Rx's Medication Instructions Recorded Last Taken Type Folic Acid 1 mg PO QDAY #30 05/05/20 Unknown Rx Metoprolol Xl [Metoprolol 100 mg PO QDAY #30 05/05/20 Unknown Rx SUCCINATE ER TAB] Thiamine [Vitamin B-1] 100 mg PO QDAY #30 tablet 05/05/20 Unknown Rx levETIRAcetam [Keppra TAB] 750 mg PO BID #60 tablet 05/05/20 Unknown Rx Allergies Allergy/AdvReac Type Severity Reaction Status Date / Time No Known Allergies Allergy Verified 03/02/21 10:26 ED Review of Systems ROS: Stated complaint: SEIZURE Other details as noted in HPI Comment: Unobtainable due to pts medical conditions (Cannot be obtained for the patient secondary to altered mental status) ED Past Medical Hx - Past Medical History Hx Hypertension: Yes Hx Congestive Heart Failure: No Hx Diabetes: Yes Hx Seizures: No Hx Asthma: Yes Additional medical history: Alcohol dependence. Cannot be obtained for the patient secondary to altered mental status - Surgical History Additional Surgical History: Cannot be obtained for the patient secondary to altered mental status - Social History Smoking Status: Unknown if ever smoked Substance Use Type: None Other Social History: Cannot be obtained for the patient secondary to altered mental status - Medications Home Medications: Home Medications Medication Instructions Recorded Confirmed Last Taken Type Amlodipine Besylate [Norvasc] 10 mg PO QDAY 05/03/20 05/03/20 Unknown History Naltrexone HCl 50 mg PO QDAY 05/03/20 05/03/20 Unknown History Folic Acid 1 mg PO QDAY #30 05/05/20 Unknown Rx Metoprolol Xl [Metoprolol 100 mg PO QDAY #30 05/05/20 Unknown Rx SUCCINATE ER TAB] Thiamine [Vitamin B-1] 100 mg PO QDAY #30 tablet 05/05/20 Unknown Rx levETIRAcetam [Keppra TAB] 750 mg PO BID #60 tablet 05/05/20 Unknown Rx ED Physical Exam - General Limitations: Altered Mental Status, Other (Pulse ox per EMS was normal) General appearance: postictal, other (Stuporous and unresponsive) - Head Head exam: Present: atraumatic, normocephalic - Eye Eye exam: Present: normal appearance, PERRL. Absent: scleral icterus - ENT ENT exam: Present: normal external ear exam - Neck Neck exam: Present: normal inspection, other (Trachea midline) - Respiratory Respiratory exam: Present: normal lung sounds bilaterally - Cardiovascular Cardiovascular Exam: Present: normal rhythm, tachycardia - GI/Abdominal GI/Abdominal exam: Present: other (Flat) - Extremities Exam Extremities exam: Absent: pedal edema - Back Exam Back exam: Present: normal inspection - Neurological Exam Neurological exam: Present: other (Stuporous) - Psychiatric Psychiatric exam: Present: other (Unresponsive) - Skin Skin exam: Present: warm, dry ED Course - Reevaluation(s) Reevaluation #1: 03/02/21 09:15 EMS was met in the hallway. Versed was to be given, but the patient immediately stopped seizing. We will order labs and dose with Keppra. 03/02/21 09:22 Old records noted. Reevaluation #2: 03/02/21 11:28 Labs are noted. We will proceed with admission. DKA protocol has been instituted. ED Medical Decision Making - Lab Data Result diagrams: 03/02/21 09:54 03/02/21 09:54 Rhythm strip: Sinus tachycardia without ectopy. Monitor observe 10 seconds. - Medical Decision Making Patient presents with recurrent seizures. He is known to be noncompliant. Metabolically, he is also in DKA. Patient will be started on an insulin drip. He has been hydrated. We will continue to treat seizures as needed. We will undergo ongoing education as the patient becomes more awake and conversant. He will go to the ICU on an insulin drip. Critical Care Time: Yes (55 minutes exclusive of all procedures) Critical care attestation.: If time is entered above; I have spent that time in minutes in the direct care of this critically ill patient, excluding procedure time. ED Disposition Clinical Impression: Recurrent seizures, Non-compliant behavior, SOWMYA (acute kidney injury) DKA (diabetic ketoacidosis) Qualifiers: Diabetes mellitus type: type 1 Diabetes mellitus complication detail: with coma Qualified Code(s): E10.11 - Type 1 diabetes mellitus with ketoacidosis with coma Disposition: 09 ADMITTED INPATIENT Is pt being admited?: Yes Condition: Stable Instructions: Diabetic Ketoacidosis (ED)
[2021-03-02] MEDS ORDERED: INSULIN REGULAR, HUMAN 100 UNITS/1 ML IV ONE (09:48)
[2021-03-02 10:36] LABS: Basophils # (Auto) 0.1 K/mm3 (0.0-0.1); Basophils % (Auto) 0.4 % (0.0-1.8); Eosinophils # (Auto) 0.1 K/mm3 (0.0-0.4); Eosinophils % (Auto) 0.6 % (0.0-4.3); Hematocrit 39.2 % (35.5-45.6); Hemoglobin 12.6 gm/dl (11.8-15.2); Lymphocytes # (Auto) 1.8 K/mm3 (1.2-5.4); Mean Corpuscular HGB Conc 32 % (32-34); Mean Corpuscular Volume 102 fl (84-94); Monocytes # (Auto) 0.8 K/mm3 (0.0-0.8); Monocytes % (Auto) 5.3 % (0.0-7.3); Platelet Count 483 K/mm3 (140-440); Red Blood Count 3.84 M/mm3 (3.65-5.03); Red Cell Distribution Width 12.6 % (13.2-15.2)
[2021-03-02 10:55] LABS: Calcium 8.9 mg/dL (8.4-10.2)
[2021-03-02] MEDS ORDERED: DEXTROSE 50% IN WATER (25GM) 50 ML SYRINGE IV PRN (10:59)
[2021-03-02] MEDS ORDERED: HALOPERIDOL LACTATE 5 MG/1 ML INJ IV ONE (11:28)
[2021-03-02] MEDS ORDERED: INSULIN REGULAR, HUMAN 100 UNITS in SODIUM CHLORIDE 0.9% 99 ML IV SCH (11:30)
[2021-03-02 12:26] LABS: Calcium 9.3 mg/dL (8.4-10.2)
--- NOTE | 2021-03-02 12:54 | History and Physical Report ---
History of Present Illness Chief complaint: He had a seizure History of present illness: 55 YO Male with HTN, DM, Mild Intermittent Asthma, ETOH Dependence presents to ED for evaluation. Patient is confused, lethargic with diminished condition at time of evaluation and is unable to provide history. Patient here for private EMS staff, ED staff, as well as patient's was made available by telephone for interview. As per the patient had a witnessed seizure today while lying on his bed and subsequently fell off the bed and landed on the floor. EMS was notified and upon arrival the patient was found to be in distress and subsequently transported to [facility] for further care and evaluation of the aforementioned symptoms. The patient was seen and evaluated in the emergency department. All lab and imaging studies reviewed. Patient found to have DKA, acute kidney injury, seizure disorder, sepsis suspected secondary to coronavirus infection. Patient admitted to ICU and initiated on DKA protocol, sepsis protocol, as well as coronavirus protocol. Patient also found to have clinical symptoms consistent with alcohol withdrawal. Patient initiated on CIWA protocol. No reports of chest pain, palpitation or productive cough, skin examination or contents, trauma. Prior admission on 01/30/2021 reviewed. All medication listed at time of admission has been reconciled. Advanced care planning conducted in ED. Patient has diminished cognition but has a positive gag reflex and is able to protect his airway without difficulty at time of evaluation. Past History Past Medical History: diabetes, hypertension, other (See HPI) Past Surgical History: No surgical history, Other (Reviewed) Social history: , lives with family Family history: diabetes, hypertension Medications and Allergies Allergies Allergy/AdvReac Type Severity Reaction Status Date / Time No Known Allergies Allergy Verified 03/02/21 10:26 Home Medications Medication Instructions Recorded Confirmed Last Taken Type Amlodipine Besylate [Norvasc] 10 mg PO QDAY 05/03/20 05/03/20 Unknown History Naltrexone HCl 50 mg PO QDAY 05/03/20 05/03/20 Unknown History Folic Acid 1 mg PO QDAY #30 05/05/20 Unknown Rx Metoprolol Xl [Metoprolol 100 mg PO QDAY #30 05/05/20 Unknown Rx SUCCINATE ER TAB] Thiamine [Vitamin B-1] 100 mg PO QDAY #30 tablet 05/05/20 Unknown Rx levETIRAcetam [Keppra TAB] 750 mg PO BID #60 tablet 05/05/20 Unknown Rx Active Meds: Active Medications Dextrose (Dextrose 50% In Water (25gm) 50 Ml Syringe) 0 ml IV Q30MIN PRN; Protocol PRN Reason: Hypoglycemia Insulin Human Regular 100 (units/ Sodium Chloride) 100 mls @ 1 mls/hr IV TITR BERNADINE; Protocol Last Admin: 03/02/21 12:04 Dose: 8 units/hr, 8 mls/hr Review of Systems ROS unobtainable: due to mental status Exam - Constitutional General appearance: Present: severe distress - EENT Eyes: Present: PERRL ENT: hearing intact, clear oral mucosa - Neck Neck: Present: supple, normal ROM - Respiratory Respiratory effort: normal Respiratory: bilateral: diminished - Cardiovascular Rhythm: other (Tachycardia) Heart Sounds: Present: S1 & S2. Absent: rub, click - Extremities Extremities: pulses symmetrical, No edema Peripheral Pulses: abnormal (Capillary refill greater than 3.5 seconds) - Abdominal General gastrointestinal: Present: soft, non-tender, non-distended, normal bowel sounds Male genitourinary: Present: normal - Integumentary Integumentary: Present: warm, dry, clammy, decreased turgor - Musculoskeletal Musculoskeletal: generalized weakness - Psychiatric Psychiatric: no appropriate mood/affect, no intact judgment & insight, no memory intact, agitated - Neurologic Neurologic: CNII-XII intact, no focal deficits, moves all extremities, no gait normal Results - Labs CBC & Chem 7: 03/02/21 09:54 03/02/21 11:48 Labs: Abnormal lab results 03/02/21 03/02/21 03/02/21 Range/Units 09:31 09:54 09:54 WBC 16.1 H (4.5-11.0) K/mm3 MCV 102 H (84-94) fl MCH 33 H (28-32) pg RDW 12.6 L (13.2-15.2) % Plt Count 483 H (140-440) K/mm3 Lymph % (Auto) 11.0 L (13.4-35.0) % Seg Neutrophils % 82.7 H (40.0-70.0) % Seg Neutrophils # 13.3 H (1.8-7.7) K/mm3 VBG pH (7.320-7.420) Sodium 130 L (137-145) mmol/L Chloride 92.0 L (98-107) mmol/L Carbon Dioxide 13 L (22-30) mmol/L BUN 32 H (9-20) mg/dL Creatinine 2.6 H (0.8-1.3) mg/dL Glucose 767 H* (75-100) mg/dL POC Glucose > 600 H (70-105) mg/dL 03/02/21 03/02/21 Range/Units 11:48 11:48 WBC (4.5-11.0) K/mm3 MCV (84-94) fl MCH (28-32) pg RDW (13.2-15.2) % Plt Count (140-440) K/mm3 Lymph % (Auto) (13.4-35.0) % Seg Neutrophils % (40.0-70.0) % Seg Neutrophils # (1.8-7.7) K/mm3 VBG pH 7.175 L* (7.320-7.420) Sodium 135 L (137-145) mmol/L Chloride 96.5 L (98-107) mmol/L Carbon Dioxide 19 L (22-30) mmol/L BUN 34 H (9-20) mg/dL Creatinine 2.6 H (0.8-1.3) mg/dL Glucose 602 H* (75-100) mg/dL POC Glucose (70-105) mg/dL Assessment and Plan - Patient Problems (1) Sepsis Current Visit: Yes Status: Acute Plan to address problem: Sepsis protocol: CBC, CMP, IV antibiotic therapy, IV fluid resuscitation therapy, serial lactic acid level, blood culture, monitor fluid balance, maintai n mean arterial pressure greater than equal 65. The high probability of a clinically significant, sudden or life threatening deterioration of the [neuro, endocrine, infectious disease,] system(s) required my full and direct attention, intervention and personal management. The aggregate critical care time was [60] minutes. This time is in addition to time spent performing reported procedures but includes the following: [x] Data Review and interpretation [x] Patient assessment and monitoring of vital signs [x] Documentation [x] Medication orders and management (2) Toxic metabolic encephalopathy Current Visit: Yes Status: Acute Plan to address problem: IV fluid resuscitation therapy, treat sepsis, (3) Suspected 2019 novel coronavirus infection Current Visit: Yes Status: Acute Plan to address problem: Current respiratory call: Vitamin C therapy, vitamin D therapy, zinc therapy, IV antibiotic therapy, IV steroid therapy, supplemental oxygen, pulse oximetry. (4) DKA (diabetic ketoacidosis) Current Visit: Yes Status: Acute Qualifiers: Diabetes mellitus type: type 1 Diabetes mellitus complication detail: with coma Qualified Code(s): E10.11 - Type 1 diabetes mellitus with ketoacidosis with coma Plan to address problem: DKA protocol: IV fluid resuscitation therapy, insulin drip, serial BMP, monitor anion gap, monitor fluid balance, (5) Alcohol withdrawal seizure Current Visit: No Status: Acute Qualifiers: Complication of substance-induced condition: with unspecified complication Qualified Code(s): F10.239 - Alcohol dependence with withdrawal, unspecified; R56.9 - Unspecified convulsions Plan to address problem: Thiamine, folic acid, multivitamin, CIWA protocol (6) DVT prophylaxis Current Visit: Yes Status: Acute Plan to address problem: SCD to bilateral lower extremities while in bed, prophylactic anticoagulation (7) Advance care planning Current Visit: Yes Status: Acute Plan to address problem: Disease education data, care plan discussed, diagnosis discussed, prognosis discussed, patient is full code. Patient acknowledges understanding and agreement with care plan, +30 minutes.
--- NOTE | 2021-03-02 13:29 | XRay Report ---
CHEST 1 VIEW 03/02/2021 1:02 PM INDICATION / CLINICAL INFORMATION: Cough. COMPARISON: 02/04/21. FINDINGS: SUPPORT DEVICES: None. HEART / MEDIASTINUM: The heart size and pulmonary vasculature are normal. LUNGS / PLEURA: There are is a calcified right hilar lymph node. The lungs are otherwise clear. No pl eural abnormality. No pneumothorax. ADDITIONAL FINDINGS: No significant additional findings. IMPRESSION: No acute abnormality or significant change. Signer Name: Harris Bray MD Signed: 03/02/2021 1:24 PM Workstation Name: [id number]
[2021-03-02 13:38] LABS: Bilirubin,Urine NEG (Negative); Blood,Urine NEG (Negative); Color,Urine Straw (Yellow); Urobilinogen,Urine < 2.0 mg/dL (<2.0)
[2021-03-02] MEDS ORDERED: ACETAMINOPHEN 325 MG TAB PO PRN ×2 (13:42→14:00)
[2021-03-02] MEDS ORDERED: SODIUM CHLORIDE 0.9% 1000 ML IV SOLN IV SCH (14:00)
[2021-03-02] MEDS ORDERED: HYDROmorphone 1 MG/1 ML INJ IV PRN (14:00)
[2021-03-02] MEDS ORDERED: ONDANSETRON 4 MG/2 ML INJ IV PRN (14:00)
[2021-03-02] MEDS ORDERED: SODIUM CHLORIDE 0.9% 1000 ML 1,000 ML IV SCH (14:00)
[2021-03-02] MEDS ORDERED: oxyCODONE /ACETAMINOPHEN 5-325MG TAB PO PRN (14:00)
[2021-03-02] MEDS: cefTRIAXone/NS 2 GM/100 ML 2 GM/100 ML BAG IV SCH (14:26)
[2021-03-02] MEDS: AZITHROMYCIN/NS 500 MG/250 ML 500 MG/250 ML BAG IV SCH (14:40)
[2021-03-02] MEDS: methylPREDNISolone Sod Succinate 40 MG/1 ML INJ IV SCH (14:40)
[2021-03-02] MEDS: CHOLECALCIFEROL (VIT D3) 1000 UNIT (25 mcg) TAB PO SCH (14:41)
[2021-03-02] MEDS ORDERED: LORazepam 2 MG/ML VIAL IV ONE (15:17)
[2021-03-02] MEDS: HEPARIN 5,000 UNIT/1 ML VIAL SUB-Q SCH (15:42)
[2021-03-02 15:52] LABS: C-Reactive Protein 0.2 mg/dL (0.00-1.30)
[2021-03-02] MEDS ORDERED: ALBUTEROL 2.5 MG/3 ML NEBU IH PRN (16:00)
[2021-03-02] MEDS ORDERED: LORazepam 2 MG/ML VIAL IV PRN (16:00)
[2021-03-02] MEDS ORDERED: THIAMINE 100 MG, FOLIC ACID 1 MG, MULTIPLE VITAMIN INJ, ADULT 10 ML in SODIUM CHLORIDE ... IV ONE (16:00)
[2021-03-02 16:19] LABS: Calcium 9.4 mg/dL (8.4-10.2)
[2021-03-02 17:25] LABS: Calcium 9.6 mg/dL (8.4-10.2)
[2021-03-02] MEDS ORDERED: INSULIN GLARGINE 100 UNITS/ML SUB-Q SCH (20:00)
[2021-03-02 20:39] LABS: Calcium 8.9 mg/dL (8.4-10.2)
[2021-03-02] MEDS ORDERED: levETIRAcetam 500 MG/5 ML ORAL LIQD PO SCH (22:00)
[2021-03-02] MEDS ORDERED: ASCORBIC ACID 500 MG TAB PO SCH (22:00)
[2021-03-02] MEDS ORDERED: D5W/0.9% NACL 1,000 ML IV SCH (22:00)
[2021-03-02] MEDS ORDERED: ZINC SULFATE 220 MG CAP PO SCH (22:00)
[2021-03-02] MEDS ORDERED: NON-FORMULARY EACH (Levetiracetam [Keppra Tab] 750 MG Tablet) PO SCH (22:00)
[2021-03-02] MEDS: INSULIN LISPRO 100 UNIT/ML SUB-Q SCH (22:04)
[2021-03-03] MEDS: INSULIN LISPRO 100 UNIT/ML SUB-Q SCH ×3 (02:02→17:32)
[2021-03-03 07:58] LABS: Calcium 8.8 mg/dL (8.4-10.2)
[2021-03-03] MEDS ORDERED: FOLIC ACID 1 MG TAB PO SCH (10:00)
[2021-03-03] MEDS ORDERED: amLODIPine 5 MG TAB PO SCH (10:00)
[2021-03-03] MEDS ORDERED: METOPROLOL SUCCINATE XL 100 MG TAB PO SCH (10:00)
[2021-03-03] MEDS: HEPARIN 5,000 UNIT/1 ML VIAL SUB-Q SCH (10:00)
[2021-03-03] MEDS ORDERED: THIAMINE 100 MG TAB PO SCH (10:00)
[2021-03-03] MEDS ORDERED: CHOLECALCIFEROL (VIT D3) 400 UNIT TAB PO SCH (10:00)
[2021-03-03] MEDS: CHOLECALCIFEROL (VIT D3) 1000 UNIT (25 mcg) TAB PO SCH (10:01)
--- NOTE | 2021-03-03 11:56 | Discharge Summary ---
Providers - Providers Date of Admission: 03/02/21 13:42 Attending physician: SUSU STEVENS 03/02/21 10:59 Consult to Dietitian/Nutrition [CONS] Routine Physician Instructions: Reason For Exam: DKA Reason for Consult: Nutrition Recommendations Reason for Consult: Diet education Primary care physician: ROUTE CLERK Hospitalization Condition: Stable - Discharge Diagnoses (1) Sepsis Status: Acute (2) Toxic metabolic encephalopathy Status: Acute (3) Suspected 2019 novel coronavirus infection Status: Acute (4) DKA (diabetic ketoacidosis) Status: Acute Qualifiers: Diabetes mellitus type: type 1 Diabetes mellitus complication detail: with coma Qualified Code(s): E10.11 - Type 1 diabetes mellitus with ketoacidosis with coma (5) Alcohol withdrawal seizure Status: Acute Qualifiers: Complication of substance-induced condition: with unspecified complication Qualified Code(s): F10.239 - Alcohol dependence with withdrawal, unspecified; R56.9 - Unspecified convulsions (6) DVT prophylaxis Status: Acute (7) Advance care planning Status: Acute Exam - Constitutional Vitals: Temp Pulse Resp BP Pulse Ox 98.0 F 108 H 10 L 165/85 97 03/02/21 22:32 03/03/21 09:31 03/03/21 08:00 03/03/21 09:31 03/03/21 08:30 Plan Follow up with: PRIMARY CAREMD [Primary Care Provider] - 3-5 Days Prescriptions: Folic Acid 1 mg PO DAILY #30 Multivitamin 1 each PO DAILY #30 Thiamine [Vitamin B-1] 100 mg PO QDAY #30 tablet Ascorbic Acid [Vitamin C] 1,000 mg PO DAILY #12 Cholecalciferol Vit D3 [Vitamin D3 1,000 UNIT TAB] 1,000 unit PO QDAY #12 tablet Zinc Sulfate [Zinc] 220 mg PO BID #24
[2021-03-03 12:02] LABS: Calcium 9.1 mg/dL (8.4-10.2)
[2021-03-03] MEDS: cefTRIAXone/NS 2 GM/100 ML 2 GM/100 ML BAG IV SCH (14:05)
[2021-03-03] MEDS ORDERED: hydrALAZINE 20 MG/1 ML INJ IV ONE (14:40)
[2021-03-03] MEDS: AZITHROMYCIN/NS 500 MG/250 ML 500 MG/250 ML BAG IV SCH (15:19)
[2021-03-03] MEDS: methylPREDNISolone Sod Succinate 40 MG/1 ML INJ IV SCH (15:26)
[2021-03-03] MEDS ORDERED: cloNIDine 0.2 MG TAB PO PRN (17:13)
[2021-03-03] MEDS ORDERED: LISINOPRIL 10 MG TAB ONE (17:27)
[2021-03-03 17:51] VITALS: BP 191/112
[2021-03-03] MEDS ORDERED: amLODIPine 10 MG TAB PO SCH (18:00)
[2021-03-04] MEDS ORDERED: LISINOPRIL 10 MG TAB PO SCH (10:00)
== END 2021-03-03 18:29 | disposition home or self-care (01) | DRG 871 ==
LOC: ED 09:12 → CC1 13:42 → 3A 20:01
PROVIDERS: ADMIT Internal Medicine; ATTEND Internal Medicine
DX: A41.9 Sepsis, unspecified organism (principal); E10.11 Type 1 diabetes mellitus with ketoacidosis with coma; G92.8 Other toxic encephalopathy; N17.9 Acute kidney failure, unspecified; F10.239 Alcohol dependence with withdrawal, unspecified; Z20.822 Contact with and (suspected) exposure to COVID-19; G40.909 Epilepsy, unspecified, not intractable, without status epilepticus; I10 Essential (primary) hypertension; J45.909 Unspecified asthma, uncomplicated; Z83.3 Family history of diabetes mellitus; Z82.49 Family history of ischemic heart disease and other diseases of the circulatory system; Y90.9 Presence of alcohol in blood, level not specified
CPT/HCPCS: 36415; 71045; 80048; 80320; 81001; 82140; 82805; 82962; 83615; 83735; 84100; 84145; 85025; 85379; 86140; 87040; G0378; J3490; Q0162; Q9967; G0480; J0456; J0696; J1630; J1644; J1815; J1953; J2060; J2920; J3411; J7030; U0003